=== PATIENT | female | born 1950 | race Caucasian/White ===

== ENCOUNTER 2020-12-04 07:47 | Day surgery (SDC) | payer OTHER ==
[~2020-12-04] VITALS: Ht 167.6 cm; Wt 50.1 kg
--- NOTE | 2020-12-04 08:24 | NUR ---
12/04/20 0824 CARIN LOZOYA ONE ATTEMPT IN RW BY PEPE MISSED SECOND ATTEMPT BY MA IN RAC VALVE THIRD ATTEMPT BY RN IN LH VALVE FOURTH SUCCESSFUL BY RN IN LAC PT TOW
[2020-12-04] MEDS ORDERED: RALO60 (08:28)
[2020-12-04] MEDS ORDERED: [UNRECOGNIZED DRUG - CODE] (08:28)
[2020-12-04] MEDS ORDERED: OYSTER SHELL 51 EACH (08:28)
== END 2020-12-04 09:55 | disposition home or self-care (01) ==
LOC: ORSCSDS 07:47
PROVIDERS: Internal Medicine Gastroenterology
PROC: 0DBK8ZX Excision of Ascending Colon, Via Natural or Artificial Opening Endoscopic, Diagnostic (ICD-10-PCS; principal; 2020-12-04 09:00)
PROC: 0DBN8ZX Excision of Sigmoid Colon, Via Natural or Artificial Opening Endoscopic, Diagnostic (ICD-10-PCS; principal; 2020-12-04 09:00)
PROC: 0DBH8ZX Excision of Cecum, Via Natural or Artificial Opening Endoscopic, Diagnostic (ICD-10-PCS; principal; 2020-12-04 09:00)
DX: Z12.11 Encounter for screening for malignant neoplasm of colon (principal); D12.0 Benign neoplasm of cecum; D12.2 Benign neoplasm of ascending colon; D12.5 Benign neoplasm of sigmoid colon; Z86.010 Personal history of colon polyps; Z80.0 Family history of malignant neoplasm of digestive organs
CPT/HCPCS: 88305; J0330; J0461; J2405; J2704; J7120